=== PATIENT | male | born 1930 | race Caucasian/White ===

== ENCOUNTER → 2017-05-18 | Outpatient (CLI) | payer OTHER, BC ==
[~2017-05-18] MED LIST: AMLODIPINE BESYL5 MG PO; CENTRUM SILV1 TABLE1 PO; CENTRUM SILVER1 EAC3 PO; CEPHALEXIN500 M2 PO; COUMADIN5 MG PO; COUMADIN7.5 MG PO; ENDOCET 5-3251 EACH PO; Feosol PO; HYOSCYAMINE0.375 M3 PO; KEFLEX500 MG PO; LEVBID0.375 MG PO; LOVENOX100 MG/1 M SC; Levbid,HyoMax SR PO; MOTRIN IB200 MG PO; Oscal 250 w/Vitamin PO; PRILOSEC40 MG PO; Percocet 5/325,Endoc PO; PriLOSEC PO; TYLENOL REGULA325 MG PO; WARFARIN SODIUM1 MG PO; XARELTO10 MG PO; Xarelto PO
== END | disposition home or self-care (01) ==
DX: R13.11 Dysphagia, oral phase (principal); R13.13 Dysphagia, pharyngeal phase; K22.70 Barrett's esophagus without dysplasia
CPT/HCPCS: 92611 GN; G8996 GN; G8997 GN; G8998 GN

== ENCOUNTER 2017-07-12 03:53 | Emergency (ER) | payer OTHER, BC ==
[~2017-07-12] VITALS: Ht 180.3 cm; Wt 102.0 kg
[2017-07-12 04:45] LABS: HEMATOCRIT 39.7 % (38.0-50.0); MCH 32.8 PG (29.0-34.0); MCHC 33.2 G/DL (30.0-36.0); MCV 98.5 FL (86-99); MEAN PLAT.VOLUME 8.4 uM^3 (9.0-12.4); PLATELET COUNT 224 K/uL (156-360); RBC DIS.WIDTH-CV 14.2 % (11.8-14.6); RBC DIS.WIDTH-SD 52.2 % (39-53); RED BLOOD COUNT 4.03 M/uL (4.00-5.50); WHITE BLOOD COUNT 5.7 K/uL (4.1-10.2)
[2017-07-12 04:58] LABS: CHLORIDE 107 mEq/L (99-109); POTASSIUM 4.1 mEq/L (3.7-5.4); SODIUM 139 mEq/L (136-147)
[2017-07-12 05:00] LABS: GLUCOSE 113 mg/dL (70-99)
[2017-07-12 05:01] LABS: ANION GAP 8 MEQ/L (2-14)
[2017-07-12 05:04] LABS: GFR ESTIMATE (CALCULATED) > 59 mL/min/; UREA NITROGEN (BUN) 14 mg/dL (9-23)
[2017-07-12 05:05] LABS: TROP-I INTERPRETATION NEGATIVE; TROPONIN-I 0.02 ng/mL (0.0-0.30)
[2017-07-12 06:02] VITALS: BP 104/68
== END 2017-07-12 06:05 | disposition home or self-care (01) ==
LOC: EME → EDBD 03:53 → EME 03:53
PROVIDERS: Emergency Medicine
DX: S00.31XA Abrasion of nose, initial encounter (principal); S00.33XA Contusion of nose, initial encounter; S09.8XXA Other specified injuries of head, initial encounter; W18.39XA Other fall on same level, initial encounter; R42 Dizziness and giddiness; Z86.718 Personal history of other venous thrombosis and embolism; Z86.711 Personal history of pulmonary embolism
CPT/HCPCS: 70450; 70486; 80048; 84484; 85027; 93005; 99281; 99284

== ENCOUNTER 2017-07-19 16:27 | Emergency (ER) | payer OTHER, BC ==
[~2017-07-19] VITALS: Ht 180.3 cm; Wt 104.5 kg
[2017-07-19 17:59] LABS: HEMATOCRIT 40.8 % (38.0-50.0); MCH 33.3 PG (29.0-34.0); MCHC 33.8 G/DL (30.0-36.0); MCV 98.3 FL (86-99); MEAN PLAT.VOLUME 8.6 uM^3 (9.0-12.4); PLATELET COUNT 213 K/uL (156-360); RBC DIS.WIDTH-CV 14.4 % (11.8-14.6); RBC DIS.WIDTH-SD 52.3 % (39-53); RED BLOOD COUNT 4.15 M/uL (4.00-5.50); WHITE BLOOD COUNT 6.3 K/uL (4.1-10.2)
[2017-07-19 18:08] LABS: CHLORIDE 104 mEq/L (99-109); POTASSIUM 4.5 mEq/L (3.7-5.4); SODIUM 138 mEq/L (136-147)
[2017-07-19 18:10] LABS: GLUCOSE 100 mg/dL (70-99)
[2017-07-19 18:11] LABS: ANION GAP 12 MEQ/L (2-14)
[2017-07-19 18:14] LABS: GFR ESTIMATE (CALCULATED) > 59 mL/min/
[2017-07-19 18:15] LABS: UREA NITROGEN (BUN) 14 mg/dL (9-23)
[2017-07-19 21:23] VITALS: BP 126/76
== END 2017-07-19 21:31 | disposition home or self-care (01) ==
LOC: EME 16:27 → RME 16:27
PROVIDERS: Physician Assistant
DX: S22.42XA Multiple fractures of ribs, left side, initial encounter for closed fracture (principal); I71.2 Thoracic aortic aneurysm, without rupture; W19.XXXD Unspecified fall, subsequent encounter; I10 Essential (primary) hypertension; K21.9 Gastro-esophageal reflux disease without esophagitis; E03.9 Hypothyroidism, unspecified; Z86.718 Personal history of other venous thrombosis and embolism; Z86.711 Personal history of pulmonary embolism; Z96.653 Presence of artificial knee joint, bilateral
CPT/HCPCS: 71020; 71275; 80048; 85027; 85379; 93005; 99281; 99285; J3010; J7030